=== PATIENT | male | born 1960 | race Caucasian/White ===

== ENCOUNTER 2017-08-07 07:54 | Emergency (ER) | payer SELFPAY ==
[2017-08-07 08:04] VITALS: BP 136/84
--- NOTE | 2017-08-07 08:19 | UC ---
Lower Extremity/Ankle HPI - HPI Summary HPI Summary: 56 year old male with ankle pain. "I sprained my ankle yesterday" states he jumped off a ledge at work and landed wrong on left ankle. c/o pain and swelling over lateral aspect of foot. Did not fall to ground. Did not notice swelling until he got home and took off his shoe. [ End ] - History of Current Complaint Chief Complaint: UCLowerExtremity Stated Complaint: LEFT ANKLE INJURY W/C Time Seen by Provider: 08/07/17 08:07 Hx Obtained From: Patient Onset/Duration: Sudden Onset Severity Initially: Moderate Severity Currently: Moderate Aggravating Factor(s): Standing, Ambulation Alleviating Factor(s): Rest, Elevation Able to Bear Weight: Yes Related History: Occupational Injury - Risk Factors Gout Risk Factors: Diabetes - Allergies/Home Medications Allergies/Adverse Reactions: Allergies Allergy/AdvReac Type Severity Reaction Status Date / Time No Known Allergies Allergy Verified 08/07/17 08:03 PMH/Surg Hx/FS Hx/Imm Hx Previously Healthy: Yes Endocrine History: Diabetes, Dyslipidemia - Surgical History Surgical History: None - Family History Known Family History: Positive: Diabetes - Social History Occupation: Employed Full-time Alcohol Use: Rare Substance Use Type: None Smoking Status (MU): Current Some Day Smoker Type: Cigarettes Review of Systems Musculoskeletal: Arthralgia, Decreased ROM, Edema All Other Systems Reviewed And Are Negative: Yes Physical Exam Triage Information Reviewed: Yes Appearance: Well-Appearing, Pain Distress - mild Vital Signs: Initial Vital Signs Temp 98.1 F 08/07/17 07:59 Pulse 77 08/07/17 07:59 Resp 16 08/07/17 07:59 BP 136/84 08/07/17 07:59 Pulse Ox 99 08/07/17 07:59 Vital Signs Reviewed: Yes Respiratory Exam: Normal Cardiovascular Exam: Normal Musculoskeletal: Positive: ROM Limited @ - pain with inversion of foot . tender to palpation lateral foot and lateral malleolus Neurological Exam: Normal Psychological Exam: Normal Skin Exam: Normal Diagnostics - Laboratory Diagnostic Studies Completed/Ordered: IMPRESSION: 0.6 cm osseous fragment visualized lateral to the anterior portion of the. calcaneus on the AP view is indeterminate. This may represent an accessory ossicle or. potentially an avulsion fracture particularly given overlying soft tissue swelling. Lower Extremity Course/Dx - Course Course Of Treatment: refer to ortho -- non weight bearing, ? avulsiuon fracture -- I offered crutches / ankle splint / boot but patient not willing to accept or use anything. he is aware to be non weight bearing at a risk of mal union and worsened sx as he has DM -2 and will not heal fast. he is aware and declined any DME -- he has a cane and splint at home. he will go home and rest and non weight bear . he will call ortho today for f/u to determine if ossicle or avulsion fracture but treat as fracture at this time to better care for the diabetic foot - Differential Dx/Diagnosis Differential Diagnosis/HQI/PQRI: Fracture (Closed), Sprain, Strain Provider Diagnoses: Left ankle avulsion fracture Discharge - Discharge Plan Condition: Good Disposition: HOME Patient Education Materials: Ankle Fracture (ED) Forms: *Work Release Referrals: Son Sargent MD [Primary Care Provider] - 4 Days (if needed ) Tommy Kurtz MD [Medical Doctor] - 1 Day (Ortho referral )
--- NOTE | 2017-08-07 08:30 | RAD ---
Indication: LEFT ankle pain and lateral swelling following injury. Comparison: No relevant prior exams available on [place] [facility] [place]. Technique: AP, mortise, and lateral views LEFT ankle. Report: Normal articular alignment. Significant soft tissue swelling over the lateral malleolus and anterior aspect. 0.6 cm osseous fragment visualized lateral to the anterior portion of the calcaneus on the AP view is indeterminate. This may represent an accessory ossicle or potentially an avulsion fracture particularly given overlying soft tissue swelling. Peripheral vascular calcifications noted. IMPRESSION: 0.6 cm osseous fragment visualized lateral to the anterior portion of the calcaneus on the AP view is indeterminate. This may represent an accessory ossicle or potentially an avulsion fracture particularly given overlying soft tissue swelling.
== END 2017-08-07 08:47 | disposition home or self-care (01) ==
LOC: UCCORT 07:54
DX: S99.912A Unspecified injury of left ankle, initial encounter (principal); W17.89XA Other fall from one level to another, initial encounter; Y93.9 Activity, unspecified; Y92.9 Unspecified place or not applicable; Y99.0 Civilian activity done for income or pay; E11.9 Type 2 diabetes mellitus without complications; E78.5 Hyperlipidemia, unspecified; Z72.0 Tobacco use
CPT/HCPCS: 99211; G0463